=== PATIENT | female | born 1955 | race Caucasian/White ===

== ENCOUNTER → 2024-07-07 | Outpatient (CLI) | payer MEDICARE ==
[~2024-07-07] MED LIST: SODIUM CHLORIDE 0.9% 250 ML in EMPTY BAG 1 BAG IV PRN
[2024-07-07 13:53] VITALS: BP 172/88; PULSE 74; RESP 16; TEMP 97.8
[2024-07-07] MEDS: SODIUM CHLORIDE 0.9% 500 ML 500 ML in EMPTY BAG 1 BAG IV PRN (13:56)
[2024-07-07] MEDS: ZOLEDRONIC ACID 5 MG in SODIUM CHLORIDE 0.9% 100 ML IV NR (13:56)
== END ==
LOC: PROCWHC3 13:28
PROVIDERS: ATTEND Internal Medicine
DX: M81.0 Age-related osteoporosis without current pathological fracture (principal)
CPT/HCPCS: 96365; J3489